=== PATIENT | male | born 1975 | race Caucasian/White ===

== ENCOUNTER 2017-12-11 19:47 | Emergency (ER) | payer MEDICAID, SELFPAY ==
[2017-12-11] MEDS: NORCO, ANEXSIA 5/325MG TABLET (HYDROcodone/ACETAMINOPHEN) PO ×2 (23:30)
== END 2017-12-11 23:50 | disposition home or self-care (01) ==
LOC: M ED 19:47
DX: Q74.1 Congenital malformation of knee (principal); Z87.891 Personal history of nicotine dependence
CPT/HCPCS: 73564

== ENCOUNTER → 2018-06-17 | Outpatient (REF) | payer MEDICAID ==
[~2018-06-17] MED LIST: NORCOTAB PO
[2018-06-17 13:29] LABS: ALBUMIN 4.3 GM/DL (3.2-5.2); ALT/SGPT 17 U/L (12-78); BILIRUBIN,TOTAL 0.5 MG/DL (0.2-1.0); BLOOD UREA NITROGEN 16 MG/DL (7-18); CALCIUM LEVEL 8.9 MG/DL (8.5-10.1); CARBON DIOXIDE LEVEL 28 MEQ/L (21-32); CHLORIDE LEVEL 106 MEQ/L (98-107); CHOLESTEROL LEVEL 184 MG/DL (<200); CHOLESTEROL RISK RATIO 2.787 (<5); CREATININE FOR GFR 0.98 MG/DL (0.70-1.30); GLOMERULAR FILTRATION RATE > 60.0 (>60); GLUCOSE, FASTING 94 MG/DL (70-100); HDL CHOLESTEROL 66 MG/DL (>40); LDL CHOLESTEROL 108 MG/DL (<100); NON-HDL-C 118 MG/DL; POTASSIUM SERUM 4.5 MEQ/L (3.5-5.1); SODIUM LEVEL 140 MEQ/L (136-145); THYROID STIMULATING HORMONE 0.391 uIU/ML (0.358-3.740); TOTAL PROTEIN 7.4 GM/DL (6.4-8.2); TRIGLYCERIDES LEVEL 49 MG/DL (<150)
== END ==
LOC: M LAB REF 12:04
PROVIDERS: ATTEND Family Medicine Addiction Medicine
DX: Z00.00 Encounter for general adult medical examination without abnormal findings (principal)

== ENCOUNTER 2019-02-11 15:24 | Emergency (ER) | payer OTHER ==
[~2019-02-11] VITALS: Ht 175.3 cm; Wt 68.2 kg
[~2019-02-11 15:24] MED LIST changes: +HYDR-3715 PO; -NORCOTAB PO
[2019-02-11 15:25] VITALS: BP 137/83
--- NOTE | 2019-02-11 19:32 | REP ---
Left wrist series: Four views. History: Pain and swelling. Findings: Four views of the left wrist show overall normal mineralization. Bones, joints, and soft tissues are radiographically unremarkable. The views are obtained portably. Impression: No fracture or other acute bony abnormality seen. Electronically Signed by William Drake MD 02/14/2019 11:24 A
== END 2019-02-11 16:55 | disposition home or self-care (01) ==
LOC: M ED 15:24
DX: S63.502A Unspecified sprain of left wrist, initial encounter (principal); Y99.0 Civilian activity done for income or pay; X50.9XXA Other and unspecified overexertion or strenuous movements or postures, initial encounter

== ENCOUNTER 2020-09-13 17:53 | Emergency (ER) | payer OTHER ==
[~2020-09-13] VITALS: Ht 175.3 cm; Wt 73.5 kg
[2020-09-13 17:54] VITALS: BP 130/73
[2020-09-13] MEDS ORDERED: CLIN300C6 (18:03)
== END 2020-09-13 21:20 | disposition left against medical advice (07) ==
LOC: M ED 17:53
DX: Z53.21 Procedure and treatment not carried out due to patient leaving prior to being seen by health care provider (principal)

== ENCOUNTER 2020-09-20 04:43 | Emergency (ER) | payer OTHER ==
[~2020-09-20] VITALS: Ht 175.3 cm; Wt 72.8 kg
[~2020-09-20 04:43] MED LIST changes: +CLIN300C6
[2020-09-20] MEDS ORDERED: NS 1,000 ML IV ONE (06:30)
[2020-09-20] MEDS ORDERED: ISOVUE-370 76% 100ML VIAL As Ordered ONE (06:36)
[2020-09-20 06:50] LABS: BASO # 0.1 10^3/uL (0.0-0.2); BASO % 1.1 % (0.0-1.0); EOS # 0.3 10^3/uL (0.0-0.5); EOS % 5.3 % (0.0-3.0); HEMATOCRIT 46.7 % (42.0-52.0); HEMOGLOBIN 15.7 g/dl (13.5-17.5); LYMPH # 1.9 10^3/uL (1.5-5.0); LYMPH % 33.6 % (24.0-44.0); MEAN CORPUSCULAR HEMOGLOBIN 29.8 pg (27.0-33.0); MEAN CORPUSCULAR HGB CONC 33.6 g/dl (32.0-36.5); MEAN CORPUSCULAR VOLUME 88.8 fl (80.0-96.0); MONO # 0.6 10^3/uL (0.0-0.8); MONO % 10.4 % (2.0-8.0); NEUTROPHILS # 2.8 10^3/uL (1.5-8.5); NEUTROPHILS % 49.4 % (36.0-66.0); PLATELET COUNT, AUTOMATED 212 10^3/uL (150-450); RED BLOOD COUNT 5.26 10^6/uL (4.30-6.10); WHITE BLOOD COUNT 5.7 10^3/uL (4.0-10.0)
[2020-09-20 07:17] LABS: ALBUMIN 4.5 GM/DL (3.2-5.2); ALT/SGPT 20 U/L (12-78); BILIRUBIN,DIRECT 0.2 MG/DL (0.0-0.2); BILIRUBIN,TOTAL 0.6 MG/DL (0.2-1.0); CK-MB VALUE MASS < 1.0 NG/ML (<3.6); CPK CREATINE PHOSPHOKINASE 99 U/L (39-308); FREE T4 1.07 NG/DL (0.76-1.46); MB/CK RELATIVE INDEX 1.01 (< OR =4); THYROID STIMULATING HORMONE 0.261 uIU/ML (0.358-3.740); TOTAL PROTEIN 7.9 GM/DL (6.4-8.2); TROPONIN I < 0.02 NG/ML (< 0.10)
[2020-09-20 08:05] LABS: ERYTHROCYTE SEDIMENTATION RATE 2 mm/hr (0-15)
[2020-09-20 10:15] VITALS: BP 131/82
--- NOTE | 2020-09-20 16:49 | REP ---
INDICATION: right jaw pain/swelling ? abscess. COMPARISON: None. TECHNIQUE: CT soft tissues neck performed following the intravenous administration of 75 cc Isovue 370. Sagittal and coronal reconstruction images are performed. FINDINGS: The nasopharynx is unremarkable. There is abnormal periapical lucency adjacent to right mandibular tooth 30. Oropharynx and hypopharynx are unremarkable. There is no significant adenopathy in the neck soft tissues. The parotid and submandibular glands are unremarkable. No definite nodule in the thyroid. Visualized lung apices are clear. There appears to be some edema in the anterior pre mandibular soft tissues. Probable retention cyst is seen in the floor of the left maxillary sinus approximately 1.5 cm in diameter. There are diffuse moderate degenerative changes of the cervical spine without compression deformity or malalignment. There is no prevertebral soft tissue swelling. The epiglottis is normal. IMPRESSION: Findings compatible with periapical abscess of right mandibular tooth 30. Pre mandibular soft tissue swelling. No fluid collection. Preliminary report provided by [facility] at the time of the exam. <Electronically signed by Jovani Garcia > 09/20/20 [id number]
--- NOTE | 2020-09-21 04:46 | ECGEPIP ---
[facility] - ED Test Date: 2020-09-20 Pat Name: ZEKE GAUTHIER Department: Room: - Gender: Male Management Analyst: : 1975 Requested By: HUMERA KINCAID PA-C Order Number: [id number] Reading MD: Everett Hendrickson Measurements Intervals [place] Rate: 62 P: 65 VT: 158 QRS: 70 QRSD: 100 T: 42 QT: 382 QTc: 387 Interpretive Statements Normal sinus rhythm NSTTW ABNORMALITY(S) NO PRIORS FOR COMPARISON Electronically Signed on 09-21-2020 4:46:02 EDT by Everett Hendrickson
== END 2020-09-20 10:25 | disposition home or self-care (01) ==
LOC: M ED 04:43
DX: E05.90 Thyrotoxicosis, unspecified without thyrotoxic crisis or storm (principal); K04.7 Periapical abscess without sinus; M41.9 Scoliosis, unspecified; Z87.891 Personal history of nicotine dependence
CPT/HCPCS: 70491; 71046; 80047; 80076; 82550; 82553; 83605; 84439; 84443; 85025; 85652; 86140; 87798; 93005; 96360; 96361; 99284; Q9967

== ENCOUNTER → 2020-11-21 | Outpatient (CLI) | payer OTHER ==
[2020-11-21 14:42] LABS: FREE T4 0.99 NG/DL (0.76-1.46); THYROID PEROXIDASE ANTIBODY 32.8 U/ML (<60.0); THYROID STIMULATING HORMONE 0.194 uIU/ML (0.358-3.740); TOTAL T3 138.7 NG/DL (60.0-181.0)
== END ==
LOC: M LAB 12:59
PROVIDERS: ATTEND Nurse Practitioner Family
DX: R94.6 Abnormal results of thyroid function studies (principal)

== ENCOUNTER → 2021-04-09 | Outpatient (CLI) | payer OTHER ==
[~2021-04-09] MED LIST changes: +CLIN-250; -CLIN300C6
[2021-04-09 12:36] LABS: FREE T4 1.09 NG/DL (0.76-1.46); THYROID STIMULATING HORMONE 0.288 uIU/ML (0.358-3.740)
== END ==
LOC: M LAB 10:53
PROVIDERS: ATTEND Internal Medicine Endocrinology, Diabetes & Metabolism
DX: R94.6 Abnormal results of thyroid function studies (principal)

== ENCOUNTER → 2021-09-09 | Outpatient (CLI) | payer OTHER | LOC: M LABSMTC 09:49 | PROVIDERS: ATTEND Anesthesiology | DX: Z11.52 Encounter for screening for COVID-19 (principal); Z20.822 Contact with and (suspected) exposure to COVID-19 ==

== ENCOUNTER → 2021-11-07 | Outpatient (CLI) | payer OTHER | LOC: M RAD 08:21 | PROVIDERS: ATTEND Family Medicine Addiction Medicine | DX: M54.12 Radiculopathy, cervical region (principal) ==

== ENCOUNTER → 2021-12-10 | Outpatient (CLI) | payer OTHER | LOC: M PLAIMG 15:06 | PROVIDERS: ATTEND Family Medicine Addiction Medicine | DX: M50.10 Cervical disc disorder with radiculopathy, unspecified cervical region (principal) ==

== ENCOUNTER → 2023-02-24 | Outpatient (REF) | payer OTHER ==
[2023-02-24 13:24] LABS: ALBUMIN 4.2 G/DL (3.2-5.2); ALKALINE PHOSPHATASE 81 U/L (46-116); ALT/SGPT 26 U/L (7.0-40); AST/SGOT 11 U/L (<34); BILIRUBIN,TOTAL 0.5 MG/DL (0.3-1.2); BLOOD UREA NITROGEN 18 MG/DL (9-23); CALCIUM LEVEL 9.7 MG/DL (8.5-10.1); CARBON DIOXIDE LEVEL 28 MMOL/L (20-31); CHLORIDE LEVEL 106 MMOL/L (98-107); CHOLESTEROL LEVEL 196 MG/DL (<200); CHOLESTEROL RISK RATIO 3.53 (<5); CREATININE FOR GFR 0.82 MG/DL (0.70-1.30); GLOMERULAR FILTRATION RATE > 60.0 (>56); GLUCOSE, FASTING 90 MG/DL (60-100); HDL CHOLESTEROL 55.5 MG/DL (>40); LDL CHOLESTEROL 118.1 MG/DL (<100); NON-HDL-C 140.5 MG/DL; POTASSIUM SERUM 4.4 MMOL/L (3.5-5.1); SODIUM LEVEL 140 MMOL/L (136-145); TOTAL PROTEIN 7.5 G/DL (5.7-8.2); TRIGLYCERIDES LEVEL 112 MG/DL (<150)
[2023-02-24 13:25] LABS: THYROID STIMULATING HORMONE 0.502 uIU/ML (0.55-4.78)
== END ==
LOC: M LAB REF 12:18
PROVIDERS: ATTEND Family Medicine Addiction Medicine
DX: E66.3 Overweight (principal)

== ENCOUNTER → 2023-08-21 | Outpatient (REF) | payer OTHER ==
[2023-08-21 12:31] LABS: ALBUMIN 4.2 G/DL (3.2-5.2); ALKALINE PHOSPHATASE 81 U/L (46-116); ALT/SGPT 21 U/L (7.0-40); AST/SGOT 10 U/L (<34); BILIRUBIN,TOTAL 0.7 MG/DL (0.3-1.2); BLOOD UREA NITROGEN 22 MG/DL (9-23); CALCIUM LEVEL 9.8 MG/DL (8.5-10.1); CARBON DIOXIDE LEVEL 25 MMOL/L (20-31); CHLORIDE LEVEL 107 MMOL/L (98-107); CHOLESTEROL LEVEL 173 MG/DL (<200); CHOLESTEROL RISK RATIO 3.15 (<5); CREATININE FOR GFR 0.82 MG/DL (0.70-1.30); GLOMERULAR FILTRATION RATE > 60.0 (>56); GLUCOSE, FASTING 92 MG/DL (60-100); HDL CHOLESTEROL 54.8 MG/DL (>40); LDL CHOLESTEROL 96.4 MG/DL (<100); NON-HDL-C 118.2 MG/DL; POTASSIUM SERUM 4.2 MMOL/L (3.5-5.1); SODIUM LEVEL 139 MMOL/L (136-145); TOTAL PROTEIN 7.1 G/DL (5.7-8.2); TRIGLYCERIDES LEVEL 109 MG/DL (<150)
[2023-08-21 12:33] LABS: THYROID STIMULATING HORMONE 0.484 uIU/ML (0.55-4.78)
== END ==
LOC: M LAB REF 11:32
PROVIDERS: ATTEND Family Medicine Addiction Medicine
DX: E66.3 Overweight (principal)

== ENCOUNTER → 2024-03-28 | Outpatient (CLI) | payer OTHER | LOC: M RAD 09:45 | PROVIDERS: ATTEND Student in an Organized Health Care Education/Training Program | DX: M25.512 Pain in left shoulder (principal) ==

== ENCOUNTER → 2024-04-28 | Outpatient (REF) | payer OTHER | LOC: M LAB REF 15:37 | PROVIDERS: ATTEND Surgery | DX: L72.0 Epidermal cyst (principal) ==

== ENCOUNTER → 2024-05-06 | Outpatient (CLI) | payer OTHER | LOC: M RAD 07:29 | PROVIDERS: ATTEND Student in an Organized Health Care Education/Training Program | DX: Z12.2 Encounter for screening for malignant neoplasm of respiratory organs (principal); Z87.891 Personal history of nicotine dependence ==

== ENCOUNTER → 2024-05-18 | Outpatient (CLI) | payer OTHER ==
[~2024-05-18] MED LIST changes: +ISOVUE-370 76% 100ML VIAL ONE
== END ==
LOC: M PLAIMG 07:56
PROVIDERS: ATTEND Student in an Organized Health Care Education/Training Program
DX: I71.21 Aneurysm of the ascending aorta, without rupture (principal)

== ENCOUNTER → 2024-06-07 | Outpatient (REF) | payer OTHER ==
[~2024-06-07] MED LIST changes: -ISOVUE-370 76% 100ML VIAL ONE
[2024-06-07 15:14] LABS: ALBUMIN 4.1 G/DL (3.2-5.2); ALKALINE PHOSPHATASE 81 U/L (40-129); ALT/SGPT 19 U/L (7.0-40); AST/SGOT 10 U/L (<34); BILIRUBIN,TOTAL 0.7 MG/DL (0.3-1.2); BLOOD UREA NITROGEN 19 MG/DL (9-23); CALCIUM LEVEL 9.4 MG/DL (8.5-10.1); CARBON DIOXIDE LEVEL 27 MMOL/L (20-31); CHLORIDE LEVEL 104 MMOL/L (98-107); CHOLESTEROL LEVEL 189 MG/DL (<200); CHOLESTEROL RISK RATIO 3.26 (<5); CREATININE FOR GFR 0.81 MG/DL (0.70-1.30); GLOMERULAR FILTRATION RATE > 60.0 (>56); GLUCOSE, FASTING 95 MG/DL (60-100); HDL CHOLESTEROL 57.8 MG/DL (>40); LDL CHOLESTEROL 118.8 MG/DL (<100); NON-HDL-C 131.2 MG/DL; POTASSIUM SERUM 4.4 MMOL/L (3.5-5.1); SODIUM LEVEL 142 MMOL/L (136-145); TOTAL PROTEIN 7.4 G/DL (5.7-8.2); TRIGLYCERIDES LEVEL 62 MG/DL (<150)
[2024-06-07 15:16] LABS: FREE T4 1.27 NG/DL (0.89-1.76); THYROID STIMULATING HORMONE 0.182 uIU/ML (0.55-4.78)
== END ==
LOC: M LAB REF 12:10
PROVIDERS: ATTEND Student in an Organized Health Care Education/Training Program
DX: Z00.01 Encounter for general adult medical examination with abnormal findings (principal)

== ENCOUNTER 2024-08-31 09:10 | Emergency (ER) | payer OTHER ==
[~2024-08-31] VITALS: Ht 177.8 cm; Wt 79.5 kg
[2024-08-31] MEDS ORDERED: ATEN25TA (11:18)
[2024-08-31] MEDS ORDERED: VALS40TA9 (11:18)
[2024-08-31] MEDS: ACETAMINOPHEN 325 MG TAB PO ONE (11:54)
[2024-08-31] MEDS: LIDOCAINE 5% (LIDODERM) PATCH TD ONE (11:55)
[2024-08-31 12:13] VITALS: BP 143/86; TEMP 97.8; O2SAT 99
[2024-08-31] MEDS ORDERED: CELE100C PO (12:13)
[2024-08-31] MEDS ORDERED: LIDO5DIS41 TOP (12:13)
== END 2024-08-31 12:22 | disposition home or self-care (01) ==
LOC: M ED 09:10
DX: S46.012A Strain of muscle(s) and tendon(s) of the rotator cuff of left shoulder, initial encounter (principal); Y92.9 Unspecified place or not applicable; Y93.9 Activity, unspecified; Y99.9 Unspecified external cause status; Z87.891 Personal history of nicotine dependence; Z79.899 Other long term (current) drug therapy

== ENCOUNTER → 2024-09-08 | Outpatient (REF) | payer OTHER ==
[~2024-09-08] MED LIST changes: +ATEN25TA; +CELE100C PO; +LIDO5DIS41 TOP; +VALS40TA9
[2024-09-08 13:38] LABS: ALBUMIN 4.2 G/DL (3.2-5.2); ALKALINE PHOSPHATASE 80 U/L (40-129); ALT/SGPT 18 U/L (7.0-40); AST/SGOT 10 U/L (<34); BILIRUBIN,TOTAL 0.5 MG/DL (0.3-1.2); BLOOD UREA NITROGEN 15 MG/DL (9-23); CALCIUM LEVEL 9.7 MG/DL (8.5-10.1); CARBON DIOXIDE LEVEL 28 MMOL/L (20-31); CHLORIDE LEVEL 104 MMOL/L (98-107); CHOLESTEROL LEVEL 193 MG/DL (<200); CREATININE FOR GFR 0.88 MG/DL (0.70-1.30); FREE T4 1.27 NG/DL (0.89-1.76); GLOMERULAR FILTRATION RATE > 90.0 (>56); GLUCOSE, FASTING 95 MG/DL (60-100); HDL CHOLESTEROL 58.4 MG/DL (>40); LDL CHOLESTEROL 110.8 MG/DL (<100); NON-HDL-C 134.6 MG/DL; POTASSIUM SERUM 4.7 MMOL/L (3.5-5.1); SODIUM LEVEL 140 MMOL/L (136-145); THYROID STIMULATING HORMONE 0.424 uIU/ML (0.55-4.78); TOTAL PROTEIN 7.4 G/DL (5.7-8.2); TRIGLYCERIDES LEVEL 119 MG/DL (<150)
== END ==
LOC: M LAB REF 12:32
PROVIDERS: ATTEND Family Medicine Addiction Medicine
DX: R03.0 Elevated blood-pressure reading, without diagnosis of hypertension (principal)

== ENCOUNTER → 2024-09-12 | Outpatient (CLI) | payer OTHER ==
[2024-09-12 10:20] LABS: BLOOD UREA NITROGEN 16 MG/DL (9-23); CALCIUM LEVEL 9.4 MG/DL (8.5-10.1); CARBON DIOXIDE LEVEL 28 MMOL/L (20-31); CHLORIDE LEVEL 106 MMOL/L (98-107); CREATININE FOR GFR 0.93 MG/DL (0.70-1.30); GLOMERULAR FILTRATION RATE > 90.0 (>56); GLUCOSE, FASTING 90 MG/DL (60-100); POTASSIUM SERUM 4.5 MMOL/L (3.5-5.1); SODIUM LEVEL 143 MMOL/L (136-145)
== END ==
LOC: M LAB 07:24
PROVIDERS: ATTEND Physician Assistant
DX: I10 Essential (primary) hypertension (principal)

== ENCOUNTER → 2024-09-21 | Outpatient (CLI) | payer OTHER ==
[~2024-09-21] MED LIST changes: +LIDO1ADH93 TOP; -LIDO5DIS41 TOP
== END ==
LOC: M PLAIMG 14:32
PROVIDERS: ATTEND Physician Assistant
DX: I71.20 Thoracic aortic aneurysm, without rupture, unspecified (principal); R06.02 Shortness of breath

== ENCOUNTER → 2024-12-12 | Outpatient (REF) | payer OTHER ==
[2024-12-12 15:25] LABS: ALT/SGPT 18 U/L (7.0-40); AST/SGOT 14 U/L (<34); CALCIUM LEVEL 9.9 MG/DL (8.5-10.1); CARBON DIOXIDE LEVEL 26 MMOL/L (20-31); CHLORIDE LEVEL 104 MMOL/L (98-107); CHOLESTEROL LEVEL 174 MG/DL (<200); CHOLESTEROL RISK RATIO 3.38 (<5); CREATININE FOR GFR 0.92 MG/DL (0.70-1.30); GLOMERULAR FILTRATION RATE > 90.0 (>56); LDL CHOLESTEROL 88.2 MG/DL (<100); NON-HDL-C 122.6 MG/DL; POTASSIUM SERUM 4.2 MMOL/L (3.5-5.1); SODIUM LEVEL 142 MMOL/L (136-145); TRIGLYCERIDES LEVEL 172 MG/DL (<150)
[2024-12-12 15:26] LABS: FREE T4 1.37 NG/DL (0.89-1.76)
== END ==
LOC: M LAB REF 14:27
PROVIDERS: ATTEND Family Medicine Addiction Medicine
DX: R03.0 Elevated blood-pressure reading, without diagnosis of hypertension (principal)

== ENCOUNTER → 2025-03-13 | Outpatient (REF) | payer OTHER ==
[2025-03-13 13:52] LABS: CHOLESTEROL LEVEL 197.0 MG/DL (<200); CHOLESTEROL RISK RATIO 3.33 (<5); LDL CHOLESTEROL 124.5 MG/DL (<100); NON-HDL-C 137.9 MG/DL; TRIGLYCERIDES LEVEL 67.0 MG/DL (<150)
[2025-03-13 14:04] LABS: FREE T4 1.28 NG/DL (0.89-1.76)
== END ==
LOC: M LAB REF 12:35
PROVIDERS: ATTEND Family Medicine Addiction Medicine
DX: R03.0 Elevated blood-pressure reading, without diagnosis of hypertension (principal)

== ENCOUNTER → 2025-03-22 | Outpatient (CLI) | payer OTHER | LOC: M RAD 09:16 | PROVIDERS: ATTEND Physician Assistant | DX: I71.20 Thoracic aortic aneurysm, without rupture, unspecified (principal) ==

== ENCOUNTER 2025-04-13 06:10 | Day surgery (SDC) | payer OTHER ==
[~2025-04-13] VITALS: Ht 177.8 cm; Wt 77.5 kg
[~2025-04-13 06:10] MED LIST changes: -ATEN25TA; +ATEN25TA PO; +MULT-90 PO; -VALS40TA9; +VALS40TA9 PO
[2025-04-13] MEDS ORDERED: LR 1,000 ML IV SCH (06:20)
[2025-04-13] MEDS ORDERED: dexAMETHasone 4 MG/ML 1 ML VIAL As Ordered ONE (07:14)
[2025-04-13] MEDS ORDERED: ONDANSETRON 4MG/2ML VIAL As Ordered ONE (07:14)
[2025-04-13] MEDS ORDERED: SUGAMMADEX SODIUM 200 MG/2 ML VIAL As Ordered ONE (07:14)
[2025-04-13] MEDS ORDERED: LIDOCAINE 2% 100 MG/5 ML SDV (FOR ANES.) As Ordered ONE (07:14)
[2025-04-13] MEDS ORDERED: ROCURONIUM BROMIDE 50MG/5ML VIAL As Ordered ONE (07:14)
[2025-04-13] MEDS ORDERED: MIDAZOLAM INJ 2 MG/2 ML VIAL As Ordered ONE (07:15)
[2025-04-13] MEDS ORDERED: HEPARIN SOD 5000 UNITS/ML 1 ML VIAL/SYRINGE As Ordered ONE (07:29)
[2025-04-13] MEDS: HEPARIN SOD 5000 UNITS/ML 1 ML VIAL/SYRINGE SQ ONE (07:45)
[2025-04-13] MEDS: ceFAZolin SOD 2 GM IV ONCE IV ONE (07:52)
[2025-04-13] MEDS ORDERED: ACETAMINOPHEN 1000MG/100ML IV BAG As Ordered ONE (07:57)
[2025-04-13] MEDS ORDERED: dexmedeTOMIDine (4 MCG/ML) 200 MCG/50 ML BTL As Ordered ONE (08:17)
[2025-04-13] MEDS ORDERED: KETOROLAC 30 MG/ML 1 ML VIAL As Ordered ONE (08:18)
[2025-04-13] MEDS ORDERED: HYDROmorphone HCL 2 MG/ML 1 ML VIAL As Ordered ONE (08:19)
[2025-04-13] MEDS ORDERED: PHENYLephrine 500MCG 5ML (100MCG/ML) SYRINGE As Ordered ONE (09:31)
[2025-04-13] MEDS: HYDROMORPHONE HCL 0.5 MG/0.5 ML SYRINGE IV PRN (10:28)
[2025-04-13] MEDS: ONDANSETRON 4MG/2ML VIAL IV PRN (10:29)
[2025-04-13 12:35] VITALS: BP 120/67; TEMP 97; O2SAT 100
== END 2025-04-13 12:45 | disposition home or self-care (01) ==
LOC: M SDC 06:10
PROVIDERS: ATTEND Surgery
DX: K40.90 Unilateral inguinal hernia, without obstruction or gangrene, not specified as recurrent (principal); I10 Essential (primary) hypertension; I71.20 Thoracic aortic aneurysm, without rupture, unspecified; K21.9 Gastro-esophageal reflux disease without esophagitis; Z79.899 Other long term (current) drug therapy
CPT/HCPCS: 49650; C1781; J0131; J0665; J0666; J0688; J1100; J1171; J1885; J2250; J2371; J2405; J3010; S2900